=== PATIENT | male | born 1990 | race Caucasian/White ===

== ENCOUNTER 2020-11-07 17:34 | Emergency (ER) | payer SELFPAY ==
[~2020-11-07] VITALS: Ht 182.9 cm; Wt 90.9 kg
--- NOTE | 2020-11-07 18:05 | RAD ---
2 views left shoulder dated 11/07/2020. No comparison available. Clinical data indication: Pain after injury. FINDINGS: 2 views left shoulder show anterior dislocation of the humeral head relative to the glenoid. There is slight indentation at the superior lateral humeral head could be related to small Hill-Sachs impacti on fracture. No definite fracture of the inferior glenoid. AC joint unremarkable. No apparent rib fra cture. IMPRESSION: Anterior shoulder dislocation. Electronically signed by: Billy Villalobos MD (11/07/2020 6:03 PM) [id number]
[2020-11-07] MEDS ORDERED: MORPHINE SULFATE 10 MG/ML SYRINGE. ONE (18:22)
[2020-11-07] MEDS ORDERED: MORPHINE SULFATE 10 MG/ML SYRINGE. SQ ONE ×2 (18:30→19:30)
--- NOTE | 2020-11-07 19:27 | PHYS DOC ---
Past History Past Medical History: No Pertinent History Past Surgical History: Other Additional Past Surgical Histo: facial surgical Additional Smoking Information: patient chews tobacco Alcohol Use: None General Adult EDM: Chief Complaint: SHOULDER INJURY HPI: HPI: ".. I was reaching backwards..and dislocated my shoulder.. I ve had it out several times.. I need a rotator cuff repair.. and surgery on it .. I just keep putting it off..... money thing.." Patient is a 29 year old masle who presents with Lt dislocated shoulder.. Pt. tried reduction at home.. Pt. states shoulder been out 2 and 1/2 hours. Patient has had multiple recommendations to get rotator cuff care and surgical repair of his chronic dislocation left shoulder. Patient currently works as a airplane electrician. No recent travel. No specific trauma other than reaching backwards to shrimp picker a bag. Patient distal neurovascular is equal to right hand. Has obvious dislocation of left shoulder. No recent travel. No severe ill contacts. Patient is right-hand dominant. Review of Systems: Review of Systems: Constitutional: Denies fever or chills Eyes: Denies change in visual acuity HENT: Denies nasal congestion or sore throat Respiratory: Denies cough or shortness of breath Cardiovascular: Denies chest pain or edema GI: Denies abdominal pain, nausea, vomiting, bloody stools or diarrhea : Denies dysuria Musculoskeletal: Complains left shoulder dislocation Integument: Denies rash Neurologic: Denies headache, focal weakness or sensory changes Endocrine: Denies polyuria or polydipsia Lymphatic: Denies swollen glands Psychiatric: Denies depression or anxiety Family History: Family History: Noncontributory to presentation Current Medications: Current Meds: See nursing for home meds Current Medications Medications (Trade) Dose Ordered Sig/Yolis Start Time Stop Time Status Last Admin Dose Admin Morphine Sulfate (Morphine 10mg Syringe) 10 mg STK-MED ONCE 11/07/20 18:22 11/07/20 18:23 DC Allergies: Allergies: See nursing for home meds Allergies Coded Allergies Type Severity Reaction Last Updated Verified Penicillins Allergy Unknown 11/07/20 Yes Physical Exam: PE: Constitutional: Well developed, well nourished, in acute distress, non-toxic appearance. [] HENT: Normocephalic, atraumatic, bilateral external ears normal, oropharynx moist, no oral exudates, nose normal. Old surgical scars Eyes: PERRLA, EOMI, conjunctiva normal, no discharge. [] Neck: Normal range of motion, no tenderness, supple, no stridor. [] Cardiovascular:Heart rate regular rhythm, no murmur [] Lungs & Thorax: Bilateral breath sounds to apex with scattered wheezes auscultation [] Abdomen: Bowel sounds normal, soft, no tenderness, no masses, no pulsatile masses. [] Skin: Warm, dry, no erythema, no rash. [] Back: No tenderness, no CVA tenderness. [] Extremities: No tenderness, no cyanosis, no clubbing, ROM intact, no edema. [] Except the findings of obvious left shoulder dislocation Neurologic: Alert and oriented X 3, normal motor function, normal sensory function, no focal deficits noted. [] Psychologic: Affect normal, judgement normal, mood normal. [] Current Patient Data: Vital Signs: Vital Signs Date Time Temp Pulse Resp B/P (MAP) Pulse Ox O2 Delivery O2 Flow Rate FiO2 11/07/20 18:11 98.9 65 28 149/96 (113) 99 Room Air EKG: EKG: [] Radiology/Procedures: Radiology/Procedures: [place] [address] IMAGING REPORT Signed PATIENT: REBECA WORTHY ACCOUNT: [id number] : 1990 LOCATION: ER AGE: 29 SEX: M EXAM STATUS: PRE ER ORD. PHYSICIAN: HARJEET JAMIL MD REASON: possible dislocation, pain with deformity PROCEDURE: SHOULDER 2+V LEFT 2 views left shoulder dated 11/07/2020. No comparison available. Clinical data indication: Pain after injury. FINDINGS: 2 views left shoulder show anterior dislocation of the humeral head relative to the glenoid. There is slight indentation at the superior lateral humeral head could be related to small Hill-Sachs impaction fracture. No definite fracture of the inferior glenoid. AC joint unremarkable. No apparent rib fracture. IMPRESSION: Anterior shoulder dislocation. Electronically signed by: Billy Villalobos MD (11/07/2020 6:03 PM) [id number] DICTATED AND SIGNED BY: BILLY VILLALOBOS MD DATE: 11/07/201801 CC: HARJEET JAMIL MD; PCP,NO ~MTH0 0 [][place] [address] IMAGING REPORT Signed PATIENT: REBECA WORTHY ACCOUNT: [id number] : 1990 LOCATION: ER AGE: 29 SEX: M EXAM STATUS: REG ER ORD. PHYSICIAN: HARJEET JAMIL MD REASON: post reduction PROCEDURE: SHOULDER 2+V LEFT INDICATION: Reason: post reduction / Spl. Instructions: / History: COMPARISON: Earlier same day IMPRESSION: Left shoulder: 3 views obtained. Interval reduction of previously identified shoulder dislocation. There is a Hill-Sachs fracture at the humeral head. Electronically signed by: Darrian Hayden MD (11/07/2020 8:58 PM) [id number] DICTATED AND SIGNED BY: DARRIAN HAYDEN MD DATE: 11/07/202056 CC: HARJEET JAMIL MD; PCP,NO ~MTH0 0 Heart Score: Risk Factors: Risk Factors: DM, Current or recent (<one month) smoker, HTN, HLP, family history of CAD, obesity. Risk Scores: Score 0 - 3: 2.5% MACE over next 6 weeks - Discharge Home Score 4 - 6: 20.3% MACE over next 6 weeks - Admit for Clinical Observation Score 7 - 10: 72.7% MACE over next 6 weeks - Early Invasive Strategies Course & Med Decision Making: Course & Med Decision Making Pertinent Labs and Imaging studies reviewed. (See chart for details) Procedure note-shoulder dislocation-reduction of consultation- Risk of procedure discussed at length. Patient agreeable to procedure. Has not eaten since approximately noon. Patient's Mallampati score 1. Patient received small titrations of propofol. Gentle traction with countertraction was able to reduce the dislocation. Sling and swath then applied. Distal neurovascular intact after application of sling and swath. Patient recommended keep sling and swath on until follow-up with primary care and orthopedics. Recommend patient receive orthopedic input and possible surgical repair of his rotator cuff and repair of his chronic left shoulder dislocation. Patient does appear to have a Hill-Sachs deformity. Discharge home. Tylenol and ibuprofen for pain. Must follow-up. Given referral to [facility] orthoped[facility]. Patient use ice packs as needed to left shoulder. Impression: 1. Left shoulder dislocation ( Hx recurrent) 2. History of lt. rotator cuff injury 3. Hill-Sachs deformity left shoulder [] Dragon Disclaimer: Dragon Disclaimer: This electronic medical record was generated, in whole or in part, using a voice recognition dictation system. Departure Departure: Referrals: PCP,NO (PCP) Scripts Hydrocodone/Ibuprofen (HYDROCODONE-IBUPROFEN 7.5-200 ) 1 Each Tablet 1 TAB PO PRN Q6HRS PRN for PAIN, #30 TAB 0 Refills Prov: HARJEET JAMIL MD 11/07/20 Wai Disclaimer This chart was dictated in whole or in part using Voice Recognition software in a busy, high-work load, and often noisy Emergency Department environment. It may contain unintended and wholly unrecognized errors or omissions. HARJEET JAMIL MD Nov 07, 2020 19:27
[2020-11-07] MEDS ORDERED: PROPOFOL 20 ML IV ONE (19:30)
--- NOTE | 2020-11-07 21:00 | RAD ---
INDICATION: Reason: post reduction / Spl. Instructions: / History: COMPARISON: Earlier same day IMPRESSION: Left shoulder: 3 views obtained. Interval reduction of previously identified shoulder dislocation. Th ere is a Hill-Sachs fracture at the humeral head. Electronically signed by: Branden Hayden MD (11/07/2020 8:58 PM) [id number]
[2020-11-07 21:20] VITALS: BP 155/77
[2020-11-07] MEDS ORDERED: HYDR-1179 PO (21:26)
== END 2020-11-07 21:37 | disposition home or self-care (01) ==
LOC: ER 17:34
DX: S43.085A Other dislocation of left shoulder joint, initial encounter (principal); Z98.890 Other specified postprocedural states; X58.XXXA Exposure to other specified factors, initial encounter; Y93.89 Activity, other specified; Y92.89 Other specified places as the place of occurrence of the external cause; Y99.8 Other external cause status
CPT/HCPCS: 23650; 73030; 99152; 99285; J2270; J2704